=== PATIENT | female | born 2000 | race Caucasian/White ===

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

== ENCOUNTER 2019-01-08 01:21 | Emergency (ER) | payer BC ==
[~2019-01-08] VITALS: Ht 167.6 cm; Wt 63.6 kg
[~2019-01-08 01:21] MED LIST: ADVIL200 MG PO; LO LOESTRIN FE1 TAB PO; PEPCID 20MG TAB20 MG PO; PREDNISONE20 MG PO
[2019-01-08 01:41] VITALS: TEMP 97.8
[2019-01-08 02:03] LABS: BASO # 0.1 (0.0-0.2); BASO % 0.6 % (0.0-2.0); EOS # 0.1 (0.0-0.7); EOS % 1.2 % (0-4.0); GRAN # 4.7 (1.4-6.5); GRAN % 60.6 % (42.2-75.2); HEMATOCRIT 37.7 % (35.0-45.0); HEMOGLOBIN 12.7 g/dl (12.0-15.0); LYMPH # 2.2 (1.2-3.4); LYMPH % 28.8 % (20.0-51.0); MEAN CELL VOLUME 90 fl (80.0-95.0); MEAN CORPUSCULAR HEMOGLOBIN 31 pg (26.0-32.0); MEAN CORPUSCULAR HGB CONC 34 g/dl (33.0-37.0); MEAN PLATELET VOLUME 11.2 fl (7.4-10.4); MONO # 0.6 (0.1-0.6); MONO % 8.2 % (1.7-9.3); PLATELET COUNT 175 K/mm3 (130-400); RED BLOOD COUNT 4.17 M/mm3 (4.10-5.30); REDCELL DISTRIBUTION WIDTH-CV 11.9 % (11.5-14.5)
[2019-01-08 02:14] LABS: ALBUMIN 4.4 gm/dL (3.5-5.0); BILIRUBIN,TOTAL 0.3 mg/dL (0.0-1.0); CREATININE, serum 0.7 (0.52-1.25); TOTAL PROTEIN 7.6 gm/dL (6.4-8.2)
[2019-01-08 02:20] LABS: TRICYCLIC ANTIDEPRESS URINE NEGATIVE
[2019-01-08 09:20] VITALS: BP 107/62; PULSE 69
== END 2019-01-08 10:05 | disposition home or self-care (01) ==
LOC: COL.ER 01:21
PROVIDERS: Nurse Practitioner
DX: F10.129 Alcohol abuse with intoxication, unspecified (principal)
CPT/HCPCS: J2405

== ENCOUNTER → 2020-01-13 | Outpatient (CLI) | payer BC | LOC: ZCOL.LAB 15:42 | DX: U07.1 COVID-19 (principal) ==